=== PATIENT | female | born 1990 | race Caucasian/White ===

== ENCOUNTER 2017-06-14 15:00 | Emergency (ER) | payer OTHER ==
[~2017-06-14] VITALS: Ht 165.1 cm; Wt 81.6 kg
[~2017-06-14 15:00] MED LIST: CYCL5TAB PO
[2017-06-14 15:11] VITALS: BP 161/97
[2017-06-14] MEDS ORDERED: fentaNYL PF 100 MCG/2 ML VIAL IV ONE (15:45)
[2017-06-14] MEDS ORDERED: ONDANSETRON PF 4 MG/2 ML VIAL. IV ONE (15:45)
--- NOTE | 2017-06-14 16:31 | ED.ADGEN ---
Past History Past Medical History: No Pertinent History Past Surgical History: No Surgical History Smoking: Cigarettes Alcohol Use: None Drug Use: None Adult General Chief Complaint Chief Complaint Labial abscess HPI HPI Patient is a 26-year-old female with history of recurrent problems cyst abscesses who presents with recurrence of Bartholin cyst abscess. Patient had an abscess drained twice in the same location. Patient first noted feeling a bump or not proximally one week ago in the past 24 hours become more swollen and tender. It is not currently draining. Patient does have a PULL UP HAND but was unable to be seen today. Patient is currently on Depo-Provera last injection was 2 months ago. Review of Systems Review of Systems ROS as per HPI. Current Medications Current Medications Current Medications Medications (Trade) Dose Ordered Sig/Teresa Start Time Stop Time Status Last Admin Dose Admin Fentanyl Citrate (Fentanyl 2ml Vial) 100 mcg 1X ONCE 06/14/17 15:45 06/14/17 15:46 DC 06/14/17 15:42 100 MCG Ondansetron HCl (Zofran) 4 mg 1X ONCE 06/14/17 15:45 06/14/17 15:46 DC 06/14/17 15:42 4 MG Allergies Allergies Allergies Coded Allergies Type Severity Reaction Last Updated Verified No Known Drug Allergies 07/04/14 No Physical Exam Physical Exam Constitutional: Well developed, well nourished, no acute distress, non-toxic appearance. [] HENT: Normocephalic, atraumatic, bilateral external ears normal, oropharynx moist, no oral exudates, nose normal. [] Eyes: PERRL. Lungs & Thorax: Bilateral breath sounds clear to auscultation [] Abdomen: Bowel sounds normal, soft, no tenderness, , small Bartholin cyst abscess left posterior inner labia. No signs of surrounding soft tissue infection [] Skin: Warm, dry, no erythema, no rash. [] Back: No tenderness, no CVA tenderness. [] Extremities: No tenderness, no cyanosis, no clubbing, ROM intact, no edema. [] Neurologic: Alert and oriented X 3, normal motor function, normal sensory function, no focal deficits noted. [] Psychologic: Affect normal, judgement normal, mood normal. [] Current Patient Data Vital Signs Vital Signs Date Time Temp Pulse Resp B/P (MAP) Pulse Ox O2 Delivery O2 Flow Rate FiO2 06/14/17 15:42 16 98 8/31/17 15:11 98.4 94 Room Air EKG EKG [] Radiology/Procedures Radiology/Procedures [Incision and Drainage Procedure Note: Procedure: Incision and drainage of left labial Bartholin cyst abscess. Anaesthesia: 2 mL of 1% lidocaine with epinephrine Betadine applied to left posterior labia injected with 2 mL's 1% lidocaine with epinephrine. A stab incision was then performed over the most fluctuant region with purulent drainage immediately present. Abscess was then milked to above for the reduction of pus. It was allowed to completely drain. 5 cm of quarter inch iodoform gauze was then packed into the region. Patient was instructed to remove gauze in 3 days and follow-up with geophysical laboratory supervisor. ] Course & Med Decision Making Course & Med Decision Making Pertinent Labs and Imaging studies reviewed. (See chart for details) [Pain addressed. Bartholin's cyst abscess drained. Packing left in place. Patient instructed to repacking in 3 days and follow-up with him. Patient discharged home with prescriptions for doxycycline and [place]. Return precautions reviewed.] Final Impression Final Impression [1. Incision and drainage of Bartholin cyst abscess] Problems: Dragon Disclaimer Dragon Disclaimer This electronic medical record was generated, in whole or in part, using a voice recognition dictation system. GILAMR FLOWERS DO Jun 14, 2017 16:31
== END 2017-06-14 16:37 | disposition home or self-care (01) ==
LOC: ER 15:00
DX: N75.1 Abscess of Bartholin's gland (principal); F17.210 Nicotine dependence, cigarettes, uncomplicated
CPT/HCPCS: 56420; 96374; 96375; 99284; J2405; J3010

== ENCOUNTER 2018-05-26 11:51 | Emergency (ER) | payer SELFPAY ==
[~2018-05-26] VITALS: Ht 165.1 cm; Wt 91.0 kg
[2018-05-26 12:01] VITALS: BP 139/72
[2018-05-26] MEDS ORDERED: LIDOCAINE 1%/EPI 1:100,000 20 ML VIAL. IJ ONE (12:30)
[2018-05-26] MEDS ORDERED: SMZ/TMP 800/160MG TABLET. PO ONE (12:30)
[2018-05-26] MEDS ORDERED: SULF1TAB24 PO (13:31)
--- NOTE | 2018-05-26 13:31 | PHYS DOC ---
Past History Past Medical History: No Pertinent History Past Surgical History: No Surgical History Smoking: Cigarettes Alcohol Use: None Drug Use: None Adult General Chief Complaint Chief Complaint: ABSCESS HPI HPI 27-year-old female presents with 3 day history of right upper thigh swelling and redness with concern for possible abscess. Patient reports concern for possible Bartholin's gland abscess. Reports his had a history of them in the past. Reports last tetanus shot less than 5 years ago. Denies fever or chills. Denies . Review of Systems Review of Systems Constitutional: Denies fever or chills [] Eyes: Denies change in visual acuity, redness, or eye pain [] HENT: Denies nasal congestion or sore throat [] Respiratory: Denies cough or shortness of breath [] Cardiovascular: Denies chest pain or palpitations GI: Denies abdominal pain, nausea, vomiting, or diarrhea [] : Denies dysuria or hematuria or Integument: Right upper thigh abscess and swelling Neurologic: Denies headache, focal weakness or sensory changes [] Complete systems were reviewed and found to be within normal limits, except as documented in this note. Current Medications Current Medications Current Medications Medications (Trade) Dose Ordered Sig/Teresa Start Time Stop Time Status Last Admin Dose Admin Lidocaine/ Epinephrine (Xylocaine 1%-Epi 1:100,000) 20 ml 1X ONCE 05/26/18 12:30 05/26/18 12:31 DC Trimethoprim/ Sulfamethoxazole (Bactrim Ds) 2 tab 1X ONCE 05/26/18 12:30 05/26/18 12:31 DC 05/26/18 12:33 2 TAB Allergies Allergies Allergies Coded Allergies Type Severity Reaction Last Updated Verified No Known Drug Allergies 07/04/14 No Physical Exam Physical Exam Constitutional: Well developed, well nourished, no acute distress, non-toxic appearance. [] HENT: Normocephalic, atraumatic, oropharynx moist Neck: Normal range of motion, no tenderness, supple Cardiovascular: Heart rate regular rhythm, no murmur [] Lungs & Thorax: Bilateral breath sounds clear to auscultation [] Skin: Warm, dry, no erythema; 2cm fluctuant area to right upper medial thigh, Does not appears consistent for Bartholin glad cyst given location Neurologic: Alert and oriented X 3, normal motor function, normal sensory function, no focal deficits noted. [] Psychologic: Affect normal, judgement normal, mood normal. [] Current Patient Data Vital Signs Vital Signs Date Time Temp Pulse Resp B/P (MAP) Pulse Ox O2 Delivery O2 Flow Rate FiO2 05/26/18 12:01 98.3 87 18 96 Room Air EKG EKG [] Radiology/Procedures Radiology/Procedures [] Course & Med Decision Making Course & Med Decision Making Pertinent Labs and Imaging studies reviewed. (See chart for details) Patient presents with history of present illness and physical exam consistent for right upper medial thigh abscess. I&D performed and packing placed. Empiric antibiotics initiated.Patient stable for discharge with outpatient follow-up with PCP. Discussed findings and plan with patient, who acknowledges understanding and agreement. Dragon Disclaimer Dragon Disclaimer This electronic medical record was generated, in whole or in part, using a voice recognition dictation system. Incision and Drainage Incision and Drainage : Site: right upper medial thigh Blade Size: 11 I & D Procedure: gauze wick placed Progress Chlorhexidine prep utilized, anesthetized with 1% lidocaine with epinephrine 3 mL's, horizontal incision made with purulent drainage. Loculations broken down with curved hemostat. Copious irrigation with normal saline provided. 1 inch iodoform gauze placed. Sterile dressing applied. Patient tolerated procedure well and without difficulty. Departure Departure: Impression: Primary Impression: Abscess Disposition: 01 HOME, SELF-CARE Condition: STABLE Referrals: PCPPERRY (PCP) Patient Instructions: Abscess, Care After Additional Instructions: Remove packing in 24 hours. Do not soak wound. You may shower. Keep area clean and dry. Use antibiotic with dressing change. Scripts Sulfamethoxazole/Trimethoprim (BACTRIM DS TABLET) 1 Each Tablet 2 TAB PO BID for 7 Days, #28 TAB Prov: ASIF VILLEDA DO 05/26/18 ASIF VILLEDA DO May 26, 2018 13:31
== END 2018-05-26 13:44 | disposition home or self-care (01) ==
LOC: ER 11:51
DX: L02.415 Cutaneous abscess of right lower limb (principal); F17.210 Nicotine dependence, cigarettes, uncomplicated
CPT/HCPCS: 10060; 99283

== ENCOUNTER 2019-03-16 17:30 | Emergency (ER) | payer SELFPAY ==
[~2019-03-16] VITALS: Ht 165.1 cm; Wt 85.3 kg
[~2019-03-16 17:30] MED LIST changes: +SULF1TAB24 PO
--- NOTE | 2019-03-16 18:33 | PHYS DOC ---
Past History Past Medical History: No Pertinent History Past Surgical History: No Surgical History Smoking: Cigarettes Alcohol Use: None Drug Use: None Adult General Chief Complaint Chief Complaint: BREAST PROBLEM HPI HPI 28-year-old female presents with right breast pain. The patient states that she had a small looking huffman on her breast 5 days ago. It seemed to get a little bit bigger so she attempted to pop it 2 days ago. She did not express any drainage. She believes it is still getting larger. There is 3 cm round erythematous area is very tender to the touch. Patient has no history of previous skin infections or abscesses. She has never tested positive for MRSA. She is not breast-feeding. She denies any recent trauma or known source for the infection. She does not have fever or chills. Did have 1 episode of vomiting yesterday. Review of Systems Review of Systems Constitutional: Denies fever or chills [] Eyes: Denies change in visual acuity, redness, or eye pain [] HENT: Denies nasal congestion or sore throat [] Respiratory: Denies cough or shortness of breath [] Cardiovascular: No additional information not addressed in HPI [] GI: Denies abdominal pain, nausea, vomiting, bloody stools or diarrhea [] : Denies dysuria or hematuria [] Musculoskeletal: Denies back pain or joint pain [] Integument: Denies rash or skin lesions [] Neurologic: Denies headache, focal weakness or sensory changes [] Endocrine: Denies polyuria or polydipsia : Right breast pain, cellulitis [] All other systems were reviewed and found to be within normal limits, except as documented in this note. Allergies Allergies Allergies Coded Allergies Type Severity Reaction Last Updated Verified No Known Drug Allergies 07/04/14 No Physical Exam Physical Exam Constitutional: Well developed, well nourished, no acute distress, non-toxic a ppearance. [] HENT: Normocephalic, atraumatic, bilateral external ears normal, oropharynx moist, no oral exudates, nose normal. [] Eyes: PERRLA, EOMI, conjunctiva normal, no discharge. [] Neck: Normal range of motion, no tenderness, supple, no stridor. [] Cardiovascular:Heart rate regular rhythm, no murmur [] Lungs & Thorax: Bilateral breath sounds clear to auscultation [] Abdomen: Bowel sounds normal, soft, no tenderness, no masses, no pulsatile masses. [] Skin: 3 cm erythematous, warm area on the right breast just superior to the nipple. No obvious palpable abscess pocket. Very tender to palpation[] Back: No tenderness, no CVA tenderness. [] Extremities: No tenderness, no cyanosis, no clubbing, ROM intact, no edema. [] Neurologic: Alert and oriented X 3, normal motor function, normal sensory fu nction, no focal deficits noted. [] Psychologic: Affect normal, judgement normal, mood normal. [] EKG EKG [] Radiology/Procedures Radiology/Procedures [] Impressions: Preliminary interpretation of the breast ultrasound: Appears to be a 3 cm x 0.25 cm abscess just superior to the nipple. Course & Med Decision Making Course & Med Decision Making Pertinent Labs and Imaging studies reviewed. (See chart for details) The patient did appear to have an abscess on ultrasound. I performed an I&D. See note below for more details. I will place the patient on Bactrim DS for 7 days. We will give her first dose in the ED. The patient is stable for discharge at this time. [] Dragon Disclaimer Dragon Disclaimer This electronic medical record was generated, in whole or in part, using a voice recognition dictation system. Incision and Drainage Indication: Abscess of the right breast Procedure: The patient was positioned appropriately and the skin over the incision site was prepped with alcohol.. Local anesthesia was 2% lidocaine with epinephrine. 1.5 mL was used.. An incision was then made with a #11 blade. A 1/2 cm incision was made superior to the right nipple. A moderate amount of purulent material was expressed. Loculations were broken up with a sterile Q- tip. Further drainage was expressed. The patients tetanus status is up-to-date, 4 years ago. The patient tolerated the procedure well. Complications: None Departure Departure: Impression: Primary Impression: Abscess Disposition: 01 HOME, SELF-CARE Condition: IMPROVED Referrals: PCPPERRY (PCP) Patient Instructions: Abscess, [id number] Scripts Sulfamethoxazole/Trimethoprim (BACTRIM DS TABLET) 1 Each Tablet 1 TAB PO BID for abscess for 7 Days, #14 TAB Prov: GILMAR TOSCANO DO 03/16/19 GILMAR TOSCANO DO Mar 16, 2019 18:33
[2019-03-16 18:48] VITALS: BP 139/74
[2019-03-16] MEDS ORDERED: SMZ/TMP 800/160MG TABLET. PO ONE ×2 (20:45→20:48)
[2019-03-16] MEDS ORDERED: SULF1TAB24 PO (20:47)
--- NOTE | 2019-03-17 09:58 | RAD ---
Examination: Ultrasound right breast HISTORY: History of right breast swelling infection. COMPARISON: None available This is a downtime report dictated the next day as the PACS was down on the day of examination. Report was called to the ordering physician immediately after time of examination. Findings/ impression: Ultrasound of the right breast in the periareolar region demonstrates a complex appearing cystic structure measuring 4.1 cm likely abscess or hematoma. Correlate clinically. Electronically signed by: Neel Daniels MD (03/17/2019 9:55 AM) [place] [id number]
== END 2019-03-16 20:50 | disposition home or self-care (01) ==
LOC: ER 17:30
DX: N61.1 Abscess of the breast and nipple (principal); R11.11 Vomiting without nausea; F17.210 Nicotine dependence, cigarettes, uncomplicated
CPT/HCPCS: 10060; 76641; 87070; 87186; 99285-25

== ENCOUNTER 2019-03-30 09:32 | Emergency (ER) | payer SELFPAY ==
[~2019-03-30] VITALS: Ht 165.1 cm; Wt 91.0 kg
--- NOTE | 2019-03-30 10:22 | PHYS DOC ---
Past History Past Medical History: No Pertinent History Past Surgical History: Smoking: Cigarettes Alcohol Use: None Drug Use: None Adult General Chief Complaint Chief Complaint: ABSCESS HPI HPI Patient is a 28-year-old female presents with right breast pain and redness. This has been present for approximately the past 2 weeks. Patient was seen 2 weeks ago and had an I&D performed. She was placed on antibiotic therapy. She t ook all of this but has not had a chance to follow up with her primary care physician due to other life events. She reports that the redness has been getting worse. She denies any fever. Increased pain with touch. No relief with home medicines. No nausea or vomiting. Pain is moderate to severe in intensity.[] Review of Systems Review of Systems Constitutional: Denies fever or chills [] Eyes: Denies change in visual acuity, redness, or eye pain [] HENT: Denies nasal congestion or sore throat [] Respiratory: Denies cough or shortness of breath [] Cardiovascular: No chest pain or palpitations[] GI: Denies abdominal pain, nausea, vomiting, bloody stools or diarrhea [] : Denies dysuria or hematuria [] Musculoskeletal: Denies back pain or joint pain [] Integument: See history of present illness[] Neurologic: Denies headache, focal weakness or sensory changes [] Endocrine: Denies polyuria or polydipsia [] All other systems were reviewed and found to be within normal limits, except as documented in this note. Allergies Allergies Allergies Coded Allergies Type Severity Reaction Last Updated Verified No Known Drug Allergies 03/30/19 No Physical Exam Physical Exam Constitutional: Well developed, well nourished, no acute distress, non-toxic appearance. [] HENT: Normocephalic, atraumatic, bilateral external ears normal, oropharynx moist, no oral exudates, nose normal. [] Eyes: PERRLA, EOMI, conjunctiva normal, no discharge. [] Neck: Normal range of motion, no tenderness, supple, no stridor. [] Cardiovascular:Heart rate regular rhythm, no murmur [] Lungs & Thorax: Bilateral breath sounds clear to auscultation [] Abdomen: Bowel sounds normal, soft, no tenderness, no masses, no pulsatile masses. [] Skin: Warm, dry, right breast has erythema and induration towards the medial upper portion of the breast with reference to the nipple. This is approximately 7 cm in diameter. There is no fluctuance appreciated. No axillary lymphadenopathy. No petechiae, no ulcers. [] Back: No tenderness, no CVA tenderness. [] Extremities: No tenderness, no cyanosis, no clubbing, ROM intact, no edema. [] Neurologic: Alert and oriented X 3, normal motor function, normal sensory function, no focal deficits noted. [] Psychologic: Affect normal, judgement normal, mood normal. [] Current Patient Data Vital Signs Vital Signs Date Time Temp Pulse Resp B/P (MAP) Pulse Ox O2 Delivery O2 Flow Rate FiO2 03/30/19 09:43 98.3 108 20 98 Room Air EKG EKG [] Radiology/Procedures Radiology/Procedures EXAM: Right breast ultrasound. HISTORY: Right breast pain and redness. COMPARISON: None. FINDINGS: Sonographic evaluation of the right breast was performed at the subareolar site of concern. This reveals a heterogeneous fluid collection measuring 5.8 x 4.5 x 2.1 cm. There is perfusion along its periphery but not within it. A right axillary lymph node measures 3.2 cm but demonstrates no clear cortical thickening. IMPRESSION: 1. 5.8 cm heterogeneous subareolar fluid collection consistent with an abscess. Clinical follow-up to resolution is recommended, with sonographic follow-up if symptoms do not probably resolve. 2. BI-RADS Category 3: Probably benign findings.[] Course & Med Decision Making Course & Med Decision Making Pertinent Labs and Imaging studies reviewed. (See chart for details) ED course: Patient arrived, was placed in bed, and tolerated exam well. After the return of the laboratory and imaging findings, these were discussed with the patient. IV antibiotics were started. Consultation was made with the hospitalist, Dr. HERNDON at [facility] due to needing higher level of care to include surgical last set swells possible infectious disease assets. 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 Initial dose of Ativan antibiotics were started in the emergency department here at [facility]. Medical decision making: Patient with an enlarging abscess, on March 16 the size was 4.1 cm. This appears to be failing outpatient treatment, which was sensitive to trimethoprim sulfa which she was prescribed. This looks like a pansensitive Escherichia coli on the culture report from March 16. Patient was given additionally vancomycin as well as clindamycin in the emergency department along with Rocephin due to concern now that the abscess had been opened for possibility of MRSA. She is being transferred to a facility with higher level of care for her surgical and infectious disease. She does not appear septic given the normal temperature, normal lactate, and otherwise normal vital signs in the emergency department.[] Dragon Disclaimer Dragon Disclaimer This electronic medical record was generated, in whole or in part, using a voice recognition dictation system. Departure Departure: Impression: Primary Impression: Abscess of right breast Additional Impression: Failure of outpatient treatment Disposition: 05 TRANSFER OTHER Referrals: PCP,NO (PCP) Problem Qualifiers KATHLEEN PHILLIPS DO Mar 30, 2019 10:22
[2019-03-30 10:47] LABS: BASO % 1 % (0-3); EOS # 0.2 x10^3/uL (0.0-0.7); EOS % 2 % (0-3); HEMATOCRIT 38.1 % (36.0-47.0); HEMOGLOBIN 13.1 g/dL (12.0-15.5); LYMPH # 1.7 x10^3/uL (1.0-4.8); LYMPH % 19 % (24-48); MEAN CORPUSCULAR HEMOGLOBIN 32 pg (25-35); MEAN CORPUSCULAR HGB CONC 34 g/dL (31-37); MEAN CORPUSCULAR VOLUME 94 fL (79-100); MONO # 0.6 x10^3/uL (0.0-1.1); MONO % 7 % (0-9); NEUT # 6.1 x10^3uL (1.8-7.7); NEUT % 71 % (31-73); PLATELET COUNT 302 x10^3/uL (140-400); RED BLOOD COUNT 4.04 x10^6/uL (3.50-5.40); RED CELL DISTRIBUTION WIDTH 11.7 % (11.5-14.5); WHITE BLOOD COUNT 8.5 x10^3/uL (4.0-11.0)
[2019-03-30 10:55] LABS: CALCIUM 9.2 mg/dL (8.5-10.1); CREATININE 0.7 mg/dL (0.6-1.0); GFR 98.3; POTASSIUM 3.6 mmol/L (3.5-5.1)
[2019-03-30 10:56] LABS: PREG TEST PT QUAL NEGATIVE (NEG)
[2019-03-30] MEDS: KETOROLAC 30 MG/ML VIAL. IM ONE (11:16)
--- NOTE | 2019-03-30 12:55 | RAD ---
EXAM: Right breast ultrasound. HISTORY: Right breast pain and redness. COMPARISON: None. FINDINGS: Sonographic evaluation of the right breast was performed at the subareolar site of concern. This reveals a heterogeneous fluid collection measuring 5.8 x 4.5 x 2.1 cm. There is perfusion along its periphery but not within it. A right axillary lymph node measures 3.2 cm but demonstrates no clear cortical thickening. IMPRESSION: 1. 5.8 cm heterogeneous subareolar fluid collection consistent with an abscess. Clinical follow-up to resolution is recommended, with sonographic follow-up if symptoms do not probably resolve. 2. BI-RADS Category 3: Probably benign findings. Electronically signed by: Bienvenido Flaherty MD (03/30/2019 12:52 PM) [facility]
[2019-03-30] MEDS ORDERED: cefTRIAXone SODIUM 1 GM VIAL ONE (13:06)
[2019-03-30] MEDS ORDERED: IV NORMAL SALINE 50ML 50 ML ONE ×2 (13:06→13:08)
[2019-03-30] MEDS: CLINDAMYCIN 600MG PREMIX 50 ML IV ONE (13:31)
[2019-03-30] MEDS: VANCOMYCIN 2 GM in IV NORMAL SALINE 500ML 500 ML IV ONE (13:32)
[2019-03-30 15:30] VITALS: BP 115/65
== END 2019-03-30 15:44 | disposition short-term general hospital (02) ==
LOC: ER 09:32
DX: N61.1 Abscess of the breast and nipple (principal); F17.210 Nicotine dependence, cigarettes, uncomplicated; Z98.890 Other specified postprocedural states
CPT/HCPCS: 36415; 76641; 80048; 83605; 84703; 85025; 87040; 96365; 96368; 96372; 99285; J0696; J1885; J3370; J3490; J7040

== ENCOUNTER → 2020-08-19 | Outpatient (CLI) | payer MEDICAID ==
--- NOTE | 2020-08-19 10:37 | RAD ---
EXAM: Obstetrics sonogram. HISTORY: Size and dates discrepancy. TECHNIQUE: Sonographic imaging of a gravid uterus was performed. COMPARISON: None. FINDINGS: There is a single intrauterine fetus in cephalic presentation with a normal heart rate of 152 bpm. There is an anterior placenta without evidence of placenta previa. The cervix is closed and measures 2.6 cm. The cervix is partially obscured due to bladder volume. The amniotic fluid index is normal at 13.6 cm. The biparietal diameter is 5.5 cm, corresponding with 20 weeks and 4 days. The head circumference is 19.6 cm, corresponding with 21 weeks and 6 days. The abdominal circumference is 18.3 cm, corresponding with 23 weeks and 1 day. The femoral length is 3.7 cm, corresponding with 21 weeks and 6 days. The estimated gestational age patient combined also measurements is 22 weeks and 3 days and the estimated weight is 507 g. The heart, stomach, kidneys, bladder, spine and brain are unremarkable. There is a three-vessel umbilical cord with normal insertion. The right extremity is not well seen due to presentation. The extremities are otherwise unremarkable. IMPRESSION: 1. Single intrauterine fetus with normal heart rate and gestational age based on ultrasound measurements of 22 weeks and 3 days. The gestational age based on LMP is 19 weeks and 6 days. 2. Suboptimal reduction of the cervix due to bladder volume. The cervix appears closed and measures at least 2.5 cm. Electronically signed by: Elvia Junior MD (08/19/2020 10:33 AM) [id number]
== END ==
LOC: US 09:36
PROVIDERS: ATTEND Obstetrics & Gynecology
DX: O26.842 Uterine size-date discrepancy, second trimester (principal); Z3A.19 19 weeks gestation of pregnancy
CPT/HCPCS: 76805